=== PATIENT | male | born 1975 | race Caucasian/White ===

== ENCOUNTER 2018-10-19 13:16 | Emergency (ER) | payer OTHER ==
[2018-10-19] MEDS ORDERED: Lidocaine 1% 10 ML MDV INJECT ONE (13:31)
[2018-10-19] MEDS ORDERED: Diphtheria,Pertussis(Acell),Tetanus Vaccine 0.5 ML Syringe IM ONE (13:31)
--- NOTE | 2018-10-19 14:10 | CR ---
Right thumb: Three views of the right thumb were obtained. Comparison: No previous study. Small fracture within the tuft of the distal phalanx is seen showing displacement. Soft tissue injury is noted. No proximal abnormality is seen. Impression: 1. Small tuft fracture with displacement. Soft tissue injury. 2. No additional abnormality is seen. Diagnostic code #3
--- NOTE | 2018-10-19 14:47 | EDM.PDOC ---
ED HPI GENERAL MEDICAL PROBLEM - General Chief Complaint: Upper Extremity Injury/Pain Stated Complaint: RT THUMB INJURY Time Seen by Provider: 10/19/18 13:30 Source of Information: Reports: Patient History Limitations: Reports: No Limitations - History of Present Illness INITIAL COMMENTS - FREE TEXT/NARRATIVE: The patient presents with a right thumb injury. He was working with a fork lift and the forks were stuck and they popped loose and he got his right thumb smashed between the fork lift and some metal. He is right handed. He does not think his tetanus is up to date. Onset: Sudden Duration: Minutes: Location: Reports: Upper Extremity, Right (thumb) Quality: Reports: Sharp Severity: Moderate Improves with: Reports: Immobilization Worsens with: Reports: Movement Context: Reports: Trauma (crush injury to the right thumb) Associated Symptoms: Reports: No Other Symptoms Right Hand Pain Score (Numeric/FACES): 5 - Related Data Allergies Allergy/AdvReac Type Severity Reaction Status Date / Time No Known Allergies Allergy Verified 10/19/18 13:28 Home Meds: Home Meds Cephalexin [Keflex] 500 mg PO BID #40 capsule 10/19/18 [Rx] Past Medical History - Past Health History Medical/Surgical History: Denies Medical/Surgical History Review of Systems - Review of Systems Review Of Systems: See Below Constitutional: Reports: No Symptoms Eyes: Reports: No Symptoms Ears: Reports: No Symptoms Nose: Reports: No Symptoms Mouth/Throat: Reports: No Symptoms Respiratory: Reports: No Symptoms Cardiovascular: Reports: No Symptoms GI/Abdominal: Reports: No Symptoms Genitourinary: Reports: No Symptoms Musculoskeletal: Reports: Other (right thumb injury) ED EXAM, GENERAL - Physical Exam Exam: See Below Exam Limited By: No Limitations General Appearance: Alert, No Apparent Distress Ears: Normal External Exam Nose: Normal Inspection Head: Atraumatic, Normocephalic Neck: Normal Inspection Respiratory/Chest: No Respiratory Distress Extremities: Other (laceration at the base of the right nail that goes around the finger and the volar aspect is spared. He has good sensation and capillary refill distally.) ED TRAUMA EXTREMITY PROCEDURES - Laceration/Wound Repair Right Digit - 1st (Thumb) Lac/Wound Length In cm: 2.5 Appearance: Subcutaneous (Through the base of her nail) Distal NVT: Neuro & Vascular Intact Anesthetic Type: Digital Local Anesthesia - Lidocaine (Xylocaine): 1% Plain Local Anesthetic Volume: 5cc Skin Prep: Saline Exploration/Debridement/Repair: Wound Explored, In a Bloodless Field, Explored to Base Closed With: Sutures Suture Size: 4-0 # of Sutures: 8 Suture Type: Nylon, Interrupted, Simple Tetanus Status Addressed: Yes Complications: No Course - Vital Signs Last Recorded V/S: Last Vital Signs Temp 98.6 F 10/19/18 13:31 Pulse 59 L 10/19/18 13:31 Resp 16 10/19/18 13:31 BP 147/107 H 10/19/18 13:31 Pulse Ox 100 10/19/18 13:31 - Orders/Labs/Meds Orders: Active Orders 24 hr Category Date Time Status Vaccines to be Administered [RC] PER UNIT ROUTINE Care 10/19/18 13:31 Active Meds: Medications Discontinued Medications Generic Name Dose Route Start Last Admin Trade Name Freq PRN Reason Stop Dose Admin Diphtheria/Tetanus/Acell Pertussis 0.5 ml 10/19/18 13:31 10/19/18 13:45 Adacel IM 10/19/18 13:32 0.5 ml .ONCE ONE Administration Lidocaine HCl 10 ml 10/19/18 13:31 10/19/18 13:46 Xylocaine 1% INJECT 10/19/18 13:32 10 ml ONETIME ONE Administration - Re-Assessments/Exams Free Text/Narrative Re-Assessment/Exam: 10/19/18 15:40 I ordered an x-ray and it shows a distal tuft fracture. I updated his tetanus. I sutured the laceration and I will put him on some keflex and my nurse put on an aluminum splint. Departure - Departure Time of Disposition: 15:45 Disposition: Home, Self-Care 01 Condition: Good Clinical Impression: Open fracture of tuft of distal phalanx of right thumb Crushing injury of right thumb Qualifiers: Encounter type: initial encounter Qualified Code(s): S67.01XA - Crushing injury of right thumb, initial encounter Laceration of right thumb Qualifiers: Encounter type: initial encounter Damage to nail status: without damage Foreign body presence: without foreign body Qualified Code(s): S61.011A - Laceration without foreign body of right thumb without damage to nail, initial encounter - Discharge Information *PRESCRIPTION DRUG MONITORING PROGRAM REVIEWED*: Not Applicable *COPY OF PRESCRIPTION DRUG MONITORING REPORT IN PATIENT ILIR: Not Applicable Prescriptions: Cephalexin [Keflex] 500 mg PO BID #40 capsule Referrals: PCP,None [Primary Care Provider] - Tony Rico MD [Physician] - 1 Week Forms: ED Department Discharge Additional Instructions: Soak your finger in warm soapy water 2 times per day and apply antibiotic ointment after. Put a splint on the finger for a week. Have the sutures removed in 1 week[address] Follow up with Dr Rico in 1 week. Please return if you are worse. - My Orders Last 24 Hours: My Active Orders 10/19/18 13:31 Vaccines to be Administered [RC] PER UNIT ROUTINE - Assessment/Plan Last 24 Hours: My Active Orders 10/19/18 13:31 Vaccines to be Administered [RC] PER UNIT ROUTINE
== END 2018-10-19 16:10 | disposition home or self-care (01) ==
LOC: JD.ED 13:16
DX: S67.01XA Crushing injury of right thumb, initial encounter (principal); S62.521B Displaced fracture of distal phalanx of right thumb, initial encounter for open fracture; W23.1XXA Caught, crushed, jammed, or pinched between stationary objects, initial encounter; Y99.0 Civilian activity done for income or pay; Z23 Encounter for immunization
CPT/HCPCS: 12001; 73140; 90471; 90700; 99283; J2001